=== PATIENT | female | born 1945 | race Caucasian/White ===

== ENCOUNTER 2024-04-27 13:00 | Outpatient (RCR) | payer MEDICARE, OTHER, SELFPAY | END 2024-04-27 23:59 | disposition home or self-care (01) | LOC: PT 13:00 | PROVIDERS: Visit Provider Nurse Practitioner | DX: M25.561 Pain in right knee (principal) | CPT/HCPCS: 97110; 97112; 97163; 97530 ==

== ENCOUNTER 2024-05-02 12:54 | Outpatient (RCR) | payer MEDICARE, OTHER, SELFPAY | END 2024-05-30 15:54 | disposition home or self-care (01) | LOC: PT 12:54 | PROVIDERS: Visit Provider Nurse Practitioner | DX: M25.561 Pain in right knee (principal) | CPT/HCPCS: 97110; 97530 ==